=== PATIENT | female | born 2000 | race African-American/Black ===

== ENCOUNTER 2021-02-25 18:15 | Emergency (ER) | payer MEDICAID | END 2021-02-25 20:25 | disposition left against medical advice (07) | LOC: ER 18:15 | DX: Z53.21 Procedure and treatment not carried out due to patient leaving prior to being seen by health care provider (principal) ==

== ENCOUNTER 2021-04-05 14:19 | Emergency (ER) | payer MEDICAID ==
[~2021-04-05] VITALS: Ht 157.5 cm; Wt 60.0 kg
[2021-04-05 19:33] LABS: BASOPHILS % 0.2 % (0.0-2.0); EOSINOPHILS % 0.6 % (0.0-5.0); HEMATOCRIT. 44.6 % (36.0-48.0); HEMOGLOBIN. 15.2 g/dL (12.0-16.0); LYMPHOCYTES % 13.2 % (20.0-50.0); MEAN CORPUSCULAR HEMOGLOBIN 33.1 pg (28.0-32.0); MEAN CORPUSCULAR VOLUME 96.8 fL (81.0-99.0); MEAN PLATELET VOLUME 7.9 fl (7.4-10.4); MONOCYTES % 8.7 % (2.0-8.0); NEUTROPHILS % 77.3 % (40.0-76.0); PLATELET 346 x1000/uL (130-400); RED BLOOD CELL COUNT 4.61 mill/uL (4.2-5.4); RED CELL DISTRIBUTION WIDTH 12.9 % (11.6-14.6)
[2021-04-05 19:40] LABS: CHLORIDE 102 mEq/L (98-107)
[2021-04-05 19:44] LABS: HCG SCREEN NEGATIVE
[2021-04-05] MEDS ORDERED: ACETAMINOPHEN 500MG TABLET PO NR (20:00)
[2021-04-05] MEDS ORDERED: ONDANSETRON 4MG ODT PO NR (20:00)
[2021-04-05] MEDS ORDERED: MORPHINE SULFATE 4 MG/ML CPJ (NOT FOR IM USE) IV STA (22:36)
[2021-04-05] MEDS ORDERED: ONDANSETRON HCL 4MG/2ML INJ IV STA (22:36)
[2021-04-05] MEDS ORDERED: SODIUM CHLORIDE 0.9% 1,000 ML IV ONE (22:45)
[2021-04-05] MEDS ORDERED: MAGNESIUM/ALUMINUM HYDROXIDE/SIMETHICONE 30ML UDC PO ONE (22:45)
[2021-04-05] MEDS ORDERED: POTASSIUM CHLORIDE 20MEQ TABLET SR PO NR (23:00)
[2021-04-05 23:38] LABS: CLARITY URINE CLOUDY (CLEAR); COLOR URINE DARK YELLOW (YELLOW); KETONES URINE 3+ (NEGATIVE); LEUKOCYTE ESTERASE URINE 3+ (NEGATIVE); NITRITE URINE POSITIVE (NEGATIVE); OCCULT BLOOD URINE 1+ (NEGATIVE); PH URINE 5.5 (4.5-8.0); PROTEIN URINE 1+ (NEGATIVE); SPECIFIC GRAVITY URINE 1.022 (1.005-1.030)
[2021-04-05] MEDS ORDERED: METR500T MT (23:42)
[2021-04-05] MEDS ORDERED: ONDA4TAB5 MT (23:42)
[2021-04-05] MEDS ORDERED: CEPH500C2 MT (23:42)
[2021-04-05] MEDS ORDERED: CEFTRIAXONE 1 G PREMIX 50 ML IV NR (23:59)
[2021-04-06 00:44] VITALS: BP 132/78
== END 2021-04-06 00:48 | disposition home or self-care (01) ==
LOC: ER 14:19
DX: N10 Acute pyelonephritis (principal); R11.2 Nausea with vomiting, unspecified; F12.10 Cannabis abuse, uncomplicated
CPT/HCPCS: 36415; 74176; 76830; 76856; 80053; 81003; 81025; 83690; 84703; 85025; 87086; 96361; 96365; 96375; 99284; J0696; J2270; J2405; J7030